=== PATIENT | female | born 1995 | race Caucasian/White ===

== ENCOUNTER 2020-09-29 11:18 | Inpatient (IN) | payer MEDICAID ==
[~2020-09-29] VITALS: Ht 172.7 cm; Wt 109.1 kg
[2020-09-29] MEDS ORDERED: ONDANSETRON HCL 4 MG/2 ML VIAL IV ONE (11:30)
[2020-09-29] MEDS ORDERED: SODIUM CHLORIDE 0.9% 1,000 ML IVB ONE (11:30)
[2020-09-29] MEDS ORDERED: KETOROLAC TROMETH 30 MG/ML 1ML VIAL IV ONE (11:30)
[2020-09-29 12:17] LABS: Basophils # (auto) 0 10 ^3/uL (0-0.2); Basophils % (auto) 0.2 % (0.0-2.0); Eosinophils # (auto) 0.1 10 ^3/uL (0-0.8); Eosinophils % (auto) 0.8 % (0.0-7.0); Hematocrit 39.1 % (36.0-46.0); Hemoglobin 13.2 g/dL (12.2-16.2); Lymphocytes # (auto) 1.1 10 ^3/uL (0.4-5.4); Lymphocytes % (auto) 11.4 % (10.0-50.0); Mean Corpuscular Hemoglobin 29.4 pg (28.0-32.0); Mean Corpuscular Hgb Conc. 33.7 g/dL (32.0-36.0); Mean Corpuscular Volume 87.1 fL (80.0-100.0); Monocytes # (auto) 0.5 10 ^3/uL (0-1.3); Monocytes % (auto) 5.5 % (0.0-12.0); Neutrophils # (auto) 7.7 10 ^3/uL (1.6-8.6); Neutrophils % (auto) 82.1 % (37.0-80.0); Platelet Count (auto) 283 10^3/uL (140-450); Red Blood Cells 4.49 10^6/uL (4.0-5.20); Red Cell Distribution Width 13.6 % (11.8-14.3); White Blood Cell 9.4 10^3/uL (4.4-10.8)
[2020-09-29 12:57] LABS: Albumin 4.2 g/dL (3.4-5.0); Potassium 3.4 mmol/L (3.5-5.1)
[2020-09-29 13:00] LABS: BUN/Creatinine Ratio 12.5; Bilirubin, Total 0.3 mg/dL (0.2-1.0); Total Protein 8.4 g/dL (6.4-8.2)
[2020-09-29] MEDS ORDERED: POTASSIUM EFFERVESENT TAB 25 MEQ PO ONE (17:45)
[2020-09-29] MEDS: SOD CHL 0.9%/ KCL 20MEQ 1,000 ML IV SCH (18:15)
[2020-09-29] MEDS ORDERED: NITROGLYCERIN 0.4 MG SL TAB SL PRN (18:15)
[2020-09-29] MEDS ORDERED: MORPHINE SULF INJ 2 MG/ML SYRINGE 1ML IV PRN ×2 (18:15)
[2020-09-29] MEDS ORDERED: ACETAMINOPHEN 325 MG TAB PO PRN (18:15)
[2020-09-29 21:03] LABS: Urine Bacteria FEW /hpf (None Seen); Urine Blood Negative /uL (Negative); Urine Mucus FEW (None Seen); Urine WBC 1 /hpf (0 - 5)
[2020-09-30] MEDS: SOD CHL 0.9%/ KCL 20MEQ 1,000 ML IV SCH ×3 (02:15→16:51)
[2020-09-30] MEDS: HYDROcodone-ACET 10/325MG TAB PO PRN (06:18)
[2020-09-30 07:15] LABS: Basophils # (auto) 0 10 ^3/uL (0-0.2); Basophils % (auto) 0.1 % (0.0-2.0); Eosinophils # (auto) 0 10 ^3/uL (0-0.8); Hematocrit 34.6 % (36.0-46.0); Hemoglobin 12.1 g/dL (12.2-16.2); Lymphocytes # (auto) 1.3 10 ^3/uL (0.4-5.4); Lymphocytes % (auto) 12.4 % (10.0-50.0); Mean Corpuscular Hemoglobin 30.1 pg (28.0-32.0); Mean Corpuscular Volume 86.1 fL (80.0-100.0); Monocytes # (auto) 1.2 10 ^3/uL (0-1.3); Monocytes % (auto) 12.1 % (0.0-12.0); Neutrophils # (auto) 7.7 10 ^3/uL (1.6-8.6); Neutrophils % (auto) 75.4 % (37.0-80.0); Platelet Count (auto) 238 10^3/uL (140-450); Red Blood Cells 4.02 10^6/uL (4.0-5.20); Red Cell Distribution Width 13.8 % (11.8-14.3); White Blood Cell 10.3 10^3/uL (4.4-10.8)
[2020-09-30 07:29] LABS: Albumin 3.7 g/dL (3.4-5.0); Calcium 8.3 mg/dL (8.5-10.1); Magnesium 2.2 mg/dL (1.6-2.6); Potassium 3.3 mmol/L (3.5-5.1)
[2020-09-30] MEDS ORDERED: MANNITOL FTV 25% 12.5 GM/50 ML 50 ML IV ONE (07:30)
[2020-09-30] MEDS ORDERED: SODIUM CHLORIDE 0.9% 1,000 ML IV ONE (07:30)
[2020-09-30 07:34] LABS: BUN/Creatinine Ratio 11.9; Bilirubin, Total 0.4 mg/dL (0.2-1.0); Total Protein 7.3 g/dL (6.4-8.2)
[2020-09-30] MEDS: PANTOPRAZOLE 40 MG/10 ML VIAL INJ IV SCH (10:00)
[2020-09-30] MEDS: cefTRIAXone 1GM/50ML D5W 50 ML IV SCH (10:41)
[2020-09-30] MEDS: ENOXAPARIN SOD 40 MG/0.4 ML SYRINGE SC SCH (10:41)
[2020-09-30] MEDS ORDERED: POTASSIUM CHL 20 Meq TABLET PO ONE (11:00)
[2020-09-30] MEDS ORDERED: KETOROLAC TROMETH 30 MG/ML 1ML VIAL IV PRN (12:15)
[2020-09-30] MEDS ORDERED: TAMSULOSIN HYDROCHLORIDE 0.4 MG CAP PO ONE (12:15)
[2020-09-30] MEDS: HYDROmorphone HCL 2 MG/ML VL IV PRN ×2 (13:57→22:00)
[2020-09-30] MEDS: ONDANSETRON HCL 4 MG/2 ML VIAL IV PRN ×2 (16:50→22:08)
[2020-09-30] MEDS: TAMSULOSIN HYDROCHLORIDE 0.4 MG CAP PO SCH (18:08)
[2020-10-01] MEDS: HYDROcodone-ACET 10/325MG TAB PO PRN ×2 (01:10→21:30)
[2020-10-01 02:24] VITALS: BP 149/85
[2020-10-01] MEDS: SOD CHL 0.9%/ KCL 20MEQ 1,000 ML IV SCH ×3 (03:00→17:42)
[2020-10-01 08:00] VITALS: BP_SYST 141; BP_DIAS 83; BP_DIAS 84
[2020-10-01] MEDS: HYDROmorphone HCL 2 MG/ML VL IV PRN ×5 (08:17→23:30)
[2020-10-01] MEDS: ONDANSETRON HCL 4 MG/2 ML VIAL IV PRN (08:18)
[2020-10-01] MEDS: PANTOPRAZOLE 40 MG/10 ML VIAL INJ IV SCH ×2 (10:00→10:25)
[2020-10-01] MEDS: cefTRIAXone 1GM/50ML D5W 50 ML IV SCH (10:24)
[2020-10-01] MEDS: ENOXAPARIN SOD 40 MG/0.4 ML SYRINGE SC SCH (10:25)
[2020-10-01 11:02] LABS: Basophils # (auto) 0 10 ^3/uL (0-0.2); Basophils % (auto) 0.1 % (0.0-2.0); Eosinophils # (auto) 0 10 ^3/uL (0-0.8); Eosinophils % (auto) 0.2 % (0.0-7.0); Hematocrit 35.6 % (36.0-46.0); Hemoglobin 12.4 g/dL (12.2-16.2); Lymphocytes # (auto) 0.8 10 ^3/uL (0.4-5.4); Lymphocytes % (auto) 10.5 % (10.0-50.0); Mean Corpuscular Hemoglobin 30.1 pg (28.0-32.0); Mean Corpuscular Hgb Conc. 34.7 g/dL (32.0-36.0); Mean Corpuscular Volume 86.7 fL (80.0-100.0); Monocytes # (auto) 0.9 10 ^3/uL (0-1.3); Neutrophils # (auto) 6.3 10 ^3/uL (1.6-8.6); Neutrophils % (auto) 78.2 % (37.0-80.0); Platelet Count (auto) 210 10^3/uL (140-450); Red Blood Cells 4.11 10^6/uL (4.0-5.20); Red Cell Distribution Width 13.4 % (11.8-14.3)
[2020-10-01] MEDS: PROMETHAZINE HCL 25 MG/ML 1ML IV PRN ×2 (11:05→16:36)
[2020-10-01 11:09] LABS: Potassium 3.7 mmol/L (3.5-5.1)
[2020-10-01 11:13] LABS: Calcium 7.8 mg/dL (8.5-10.1)
[2020-10-01 16:00] VITALS: BP 130/92
[2020-10-01] MEDS: TAMSULOSIN HYDROCHLORIDE 0.4 MG CAP PO SCH (17:42)
[2020-10-02] VITALS: BP 145/82
[2020-10-02] MEDS: SOD CHL 0.9%/ KCL 20MEQ 1,000 ML IV SCH ×3 (02:15→18:15)
[2020-10-02] MEDS: HYDROmorphone HCL 2 MG/ML VL IV PRN ×6 (04:30→23:18)
[2020-10-02 08:00] VITALS: BP 132/68
[2020-10-02] MEDS: PROMETHAZINE HCL 25 MG/ML 1ML IV PRN ×2 (08:36→15:13)
[2020-10-02] MEDS: cefTRIAXone 1GM/50ML D5W 50 ML IV SCH (10:00)
[2020-10-02] MEDS: PANTOPRAZOLE 40 MG/10 ML VIAL INJ IV SCH (10:00)
[2020-10-02] MEDS: ENOXAPARIN SOD 40 MG/0.4 ML SYRINGE SC SCH (10:00)
[2020-10-02 12:05] LABS: INR 1.02 (0.9-1.15)
[2020-10-02 12:09] LABS: BUN/Creatinine Ratio 7.3; Calcium 7.9 mg/dL (8.5-10.1); Potassium 3.5 mmol/L (3.5-5.1)
[2020-10-02 16:00] VITALS: BP 121/71
[2020-10-02] MEDS: TAMSULOSIN HYDROCHLORIDE 0.4 MG CAP PO SCH (18:00)
[2020-10-03 00:03] VITALS: BP 151/95
[2020-10-03] MEDS: HYDROcodone-ACET 10/325MG TAB PO PRN (00:35)
[2020-10-03] MEDS: HYDROmorphone HCL 2 MG/ML VL IV PRN ×6 (02:22→22:50)
[2020-10-03] MEDS: SOD CHL 0.9%/ KCL 20MEQ 1,000 ML IV SCH ×3 (02:22→19:03)
[2020-10-03 07:51] LABS: Basophils # (auto) 0 10 ^3/uL (0-0.2); Basophils % (auto) 0.3 % (0.0-2.0); Eosinophils # (auto) 0.1 10 ^3/uL (0-0.8); Eosinophils % (auto) 1.7 % (0.0-7.0); Hematocrit 38.8 % (36.0-46.0); Hemoglobin 13.1 g/dL (12.2-16.2); Lymphocytes # (auto) 1.9 10 ^3/uL (0.4-5.4); Lymphocytes % (auto) 35.6 % (10.0-50.0); Mean Corpuscular Hemoglobin 29.1 pg (28.0-32.0); Mean Corpuscular Hgb Conc. 33.7 g/dL (32.0-36.0); Mean Corpuscular Volume 86.1 fL (80.0-100.0); Monocytes # (auto) 0.5 10 ^3/uL (0-1.3); Monocytes % (auto) 9.1 % (0.0-12.0); Neutrophils # (auto) 2.9 10 ^3/uL (1.6-8.6); Neutrophils % (auto) 53.3 % (37.0-80.0); Nucleated Red Blood Cells % 0.1 %; Platelet Count (auto) 221 10^3/uL (140-450); Red Blood Cells 4.51 10^6/uL (4.0-5.20); Red Cell Distribution Width 13.2 % (11.8-14.3); White Blood Cell 5.4 10^3/uL (4.4-10.8)
[2020-10-03 08:00] VITALS: BP 133/75
[2020-10-03 08:10] LABS: BUN/Creatinine Ratio 8.4; Calcium 8.1 mg/dL (8.5-10.1); Magnesium 2.4 mg/dL (1.6-2.6); Potassium 3.9 mmol/L (3.5-5.1)
[2020-10-03] MEDS: ENOXAPARIN SOD 40 MG/0.4 ML SYRINGE SC SCH (08:34)
[2020-10-03] MEDS: cefTRIAXone 1GM/50ML D5W 50 ML IV SCH (08:34)
[2020-10-03] MEDS: PANTOPRAZOLE 40 MG/10 ML VIAL INJ IV SCH (10:00)
[2020-10-03] MEDS ORDERED: PROPOFOL 10 MG/ML 20 ML IV ONE (12:34)
[2020-10-03] MEDS ORDERED: IOHEXOL 300 MG/ML 100ML BOTTLE IJ ONE (13:06)
[2020-10-03] MEDS ORDERED: MANNITOL FTV 25% 12.5 GM/50 ML 50 ML IV ONE (14:15)
[2020-10-03 16:00] VITALS: BP 135/78
[2020-10-03] MEDS: TAMSULOSIN HYDROCHLORIDE 0.4 MG CAP PO SCH (18:00)
[2020-10-04] VITALS: BP 131/92
[2020-10-04] MEDS: HYDROmorphone HCL 2 MG/ML VL IV PRN ×6 (02:02→21:13)
[2020-10-04] MEDS: SOD CHL 0.9%/ KCL 20MEQ 1,000 ML IV SCH ×4 (02:03→21:14)
[2020-10-04] MEDS: PROMETHAZINE HCL 25 MG/ML 1ML IV PRN (06:50)
[2020-10-04 07:11] LABS: Basophils # (auto) 0 10 ^3/uL (0-0.2); Basophils % (auto) 0.1 % (0.0-2.0); Eosinophils # (auto) 0 10 ^3/uL (0-0.8); Eosinophils % (auto) 0.7 % (0.0-7.0); Hematocrit 40.1 % (36.0-46.0); Hemoglobin 13.7 g/dL (12.2-16.2); Lymphocytes # (auto) 0.9 10 ^3/uL (0.4-5.4); Lymphocytes % (auto) 18.8 % (10.0-50.0); Mean Corpuscular Hemoglobin 29.3 pg (28.0-32.0); Mean Corpuscular Hgb Conc. 34.2 g/dL (32.0-36.0); Mean Corpuscular Volume 85.6 fL (80.0-100.0); Monocytes # (auto) 0.5 10 ^3/uL (0-1.3); Monocytes % (auto) 9.6 % (0.0-12.0); Neutrophils # (auto) 3.5 10 ^3/uL (1.6-8.6); Neutrophils % (auto) 70.8 % (37.0-80.0); Nucleated Red Blood Cells % 0.1 %; Platelet Count (auto) 224 10^3/uL (140-450); Red Blood Cells 4.68 10^6/uL (4.0-5.20); Red Cell Distribution Width 13.3 % (11.8-14.3); White Blood Cell 4.9 10^3/uL (4.4-10.8)
[2020-10-04 07:32] LABS: Potassium 4.1 mmol/L (3.5-5.1)
[2020-10-04 07:37] LABS: BUN/Creatinine Ratio 11.4; Calcium 8.6 mg/dL (8.5-10.1); Magnesium 2.2 mg/dL (1.6-2.6)
[2020-10-04 08:00] VITALS: BP 151/77
[2020-10-04] MEDS: ENOXAPARIN SOD 40 MG/0.4 ML SYRINGE SC SCH (08:59)
[2020-10-04] MEDS: PANTOPRAZOLE 40 MG TAB PO SCH (09:06)
[2020-10-04] MEDS: cefTRIAXone 1GM/50ML D5W 50 ML IV SCH (09:06)
[2020-10-04 16:00] VITALS: BP 90/56
[2020-10-04] MEDS: TAMSULOSIN HYDROCHLORIDE 0.4 MG CAP PO SCH (17:38)
[2020-10-04] MEDS: HYDROcodone-ACET 10/325MG TAB PO PRN (23:03)
[2020-10-05] VITALS: BP 146/91
[2020-10-05] MEDS: HYDROmorphone HCL 2 MG/ML VL IV PRN ×6 (00:23→22:19)
[2020-10-05] MEDS: SOD CHL 0.9%/ KCL 20MEQ 1,000 ML IV SCH ×3 (05:46→22:37)
[2020-10-05] MEDS: ENOXAPARIN SOD 40 MG/0.4 ML SYRINGE SC SCH (07:55)
[2020-10-05 08:00] VITALS: BP 132/77
[2020-10-05] MEDS: cefTRIAXone 1GM/50ML D5W 50 ML IV SCH (10:15)
[2020-10-05] MEDS: PANTOPRAZOLE 40 MG TAB PO SCH (10:15)
[2020-10-05] MEDS ORDERED: KETOROLAC TROMETH 30 MG/ML 1ML VIAL IV ONE ×2 (11:15→13:00)
[2020-10-05] MEDS ORDERED: SENNA 8.6 MG TAB PO PRN (11:30)
[2020-10-05] MEDS ORDERED: DOCUSATE SOD 100 MG CAP PO PRN (11:30)
[2020-10-05] MEDS ORDERED: LACTULOSE 20Gm/30ML SOLN PO PRN (11:30)
[2020-10-05 15:45] VITALS: BP 159/97
[2020-10-05] MEDS: TAMSULOSIN HYDROCHLORIDE 0.4 MG CAP PO SCH (17:46)
[2020-10-06] VITALS: BP 143/89
[2020-10-06] MEDS: HYDROmorphone HCL 2 MG/ML VL IV PRN ×6 (02:14→23:07)
[2020-10-06] MEDS: SOD CHL 0.9%/ KCL 20MEQ 1,000 ML IV SCH ×3 (02:15→21:12)
[2020-10-06 08:00] VITALS: BP 149/90
[2020-10-06 08:05] LABS: Basophils # (auto) 0 10 ^3/uL (0-0.2); Basophils % (auto) 0.5 % (0.0-2.0); Eosinophils # (auto) 0 10 ^3/uL (0-0.8); Hematocrit 36.1 % (36.0-46.0); Hemoglobin 12.5 g/dL (12.2-16.2); Lymphocytes # (auto) 1.6 10 ^3/uL (0.4-5.4); Lymphocytes % (auto) 39.8 % (10.0-50.0); Mean Corpuscular Hemoglobin 29.4 pg (28.0-32.0); Mean Corpuscular Hgb Conc. 34.6 g/dL (32.0-36.0); Mean Corpuscular Volume 85.1 fL (80.0-100.0); Monocytes # (auto) 0.4 10 ^3/uL (0-1.3); Monocytes % (auto) 9.2 % (0.0-12.0); Neutrophils % (auto) 49.5 % (37.0-80.0); Nucleated Red Blood Cells % 0.1 %; Platelet Count (auto) 194 10^3/uL (140-450); Red Blood Cells 4.25 10^6/uL (4.0-5.20); Red Cell Distribution Width 13.4 % (11.8-14.3); White Blood Cell 4.1 10^3/uL (4.4-10.8)
[2020-10-06 08:25] LABS: Calcium 7.9 mg/dL (8.5-10.1); Magnesium 1.8 mg/dL (1.6-2.6); Potassium 3.6 mmol/L (3.5-5.1)
[2020-10-06 08:26] LABS: BUN/Creatinine Ratio 6.7
[2020-10-06] MEDS: ENOXAPARIN SOD 40 MG/0.4 ML SYRINGE SC SCH (09:13)
[2020-10-06] MEDS: PANTOPRAZOLE 40 MG TAB PO SCH (09:14)
[2020-10-06] MEDS: cefTRIAXone 1GM/50ML D5W 50 ML IV SCH (10:06)
[2020-10-06] MEDS ORDERED: IOHEXOL 300 MG/ML 100ML BOTTLE IJ ONE (13:24)
[2020-10-06] MEDS ORDERED: ONDANSETRON HCL 4 MG/2 ML VIAL ONE (13:26)
[2020-10-06] MEDS ORDERED: KETOROLAC TROMETH 30 MG/ML 1ML VIAL ONE (13:26)
[2020-10-06] MEDS ORDERED: PROPOFOL 10 MG/ML 20 ML IV ONE (13:26)
[2020-10-06] MEDS ORDERED: fentaNYL CITRATE 100 MCG/2 ML VL ONE (13:26)
[2020-10-06] MEDS ORDERED: MIDAZOLAM HCL 1MG/1ML-2 ML VIAL ONE (13:26)
[2020-10-06] MEDS ORDERED: GLYCOPYRROLATE 0.2 MG/ML 1ML VIAL ONE (13:26)
[2020-10-06] MEDS ORDERED: HYDROmorphone HCL 2 MG/ML VL IV PRN (14:45)
[2020-10-06] MEDS ORDERED: ONDANSETRON HCL 4 MG/2 ML VIAL IV PRN (14:45)
[2020-10-06] MEDS ORDERED: KETAMINE HCL 10 ML ONE (15:26)
[2020-10-06] MEDS: HYDROmorphone HCL 2 MG/ML VL ONE ×2 (15:49→15:59)
[2020-10-06 16:00] VITALS: BP 151/95
[2020-10-06] MEDS: TAMSULOSIN HYDROCHLORIDE 0.4 MG CAP PO SCH (17:51)
[2020-10-07] VITALS: BP 134/78
[2020-10-07] MEDS: HYDROmorphone HCL 2 MG/ML VL IV PRN ×5 (02:05→14:15)
[2020-10-07] MEDS: SOD CHL 0.9%/ KCL 20MEQ 1,000 ML IV SCH ×4 (05:11→21:39)
[2020-10-07 06:02] LABS: Basophils # (auto) 0 10 ^3/uL (0-0.2); Basophils % (auto) 0.4 % (0.0-2.0); Eosinophils # (auto) 0 10 ^3/uL (0-0.8); Eosinophils % (auto) 0.2 % (0.0-7.0); Hematocrit 34.5 % (36.0-46.0); Lymphocytes # (auto) 2.1 10 ^3/uL (0.4-5.4); Lymphocytes % (auto) 47.3 % (10.0-50.0); Mean Corpuscular Hemoglobin 29.4 pg (28.0-32.0); Mean Corpuscular Hgb Conc. 34.7 g/dL (32.0-36.0); Mean Corpuscular Volume 84.8 fL (80.0-100.0); Monocytes # (auto) 0.4 10 ^3/uL (0-1.3); Monocytes % (auto) 9.7 % (0.0-12.0); Neutrophils # (auto) 1.9 10 ^3/uL (1.6-8.6); Neutrophils % (auto) 42.4 % (37.0-80.0); Nucleated Red Blood Cells % 0.1 %; Platelet Count (auto) 189 10^3/uL (140-450); Red Blood Cells 4.06 10^6/uL (4.0-5.20); Red Cell Distribution Width 13.1 % (11.8-14.3); White Blood Cell 4.4 10^3/uL (4.4-10.8)
[2020-10-07 06:39] LABS: BUN/Creatinine Ratio 6.8; Calcium 7.9 mg/dL (8.5-10.1); Magnesium 1.8 mg/dL (1.6-2.6); Potassium 3.8 mmol/L (3.5-5.1)
[2020-10-07 08:00] VITALS: BP 146/92
[2020-10-07] MEDS: ENOXAPARIN SOD 40 MG/0.4 ML SYRINGE SC SCH (09:43)
[2020-10-07] MEDS: cefTRIAXone 1GM/50ML D5W 50 ML IV SCH (09:43)
[2020-10-07] MEDS: PANTOPRAZOLE 40 MG TAB PO SCH (09:43)
[2020-10-07 16:00] VITALS: BP 147/80
[2020-10-07] MEDS: TAMSULOSIN HYDROCHLORIDE 0.4 MG CAP PO SCH (17:55)
[2020-10-07] MEDS: HYDROmorphone HCL 2 MG TAB PO PRN ×2 (17:55→21:38)
[2020-10-07] MEDS: HYDROcodone-ACET 10/325MG TAB PO PRN (23:41)
[2020-10-08 00:13] VITALS: BP 136/72
[2020-10-08] MEDS: HYDROmorphone HCL 2 MG TAB PO PRN ×2 (04:20→22:13)
[2020-10-08] MEDS: HYDROcodone-ACET 10/325MG TAB PO PRN (07:37)
[2020-10-08 08:00] VITALS: BP 131/74
[2020-10-08] MEDS: levoFLOXacin 500 MG TAB PO SCH (10:13)
[2020-10-08] MEDS: ENOXAPARIN SOD 40 MG/0.4 ML SYRINGE SC SCH (10:14)
[2020-10-08] MEDS: PANTOPRAZOLE 40 MG TAB PO SCH (10:14)
[2020-10-08] MEDS: SOD CHL 0.9%/ KCL 20MEQ 1,000 ML IV SCH ×3 (10:20→22:19)
[2020-10-08] MEDS ORDERED: MANNITOL 20% SOLN 100 gm/500ml 300 ML IV ONE (11:45)
[2020-10-08 16:00] VITALS: BP 133/82
[2020-10-08 16:26] LABS: INR 1.06 (0.9-1.15); Partial Thromboplastin Time 27.6 sec (23.0-31.2)
[2020-10-08] MEDS: TAMSULOSIN HYDROCHLORIDE 0.4 MG CAP PO SCH (17:59)
[2020-10-08] MEDS ORDERED: IOHEXOL 300 MG/ML 100ML BOTTLE IJ ONE (18:54)
[2020-10-08] MEDS ORDERED: SUCCINYLCHOLINE CHLORIDE 20 MG/ML 10ML VIAL IV ONE (19:25)
[2020-10-08] MEDS ORDERED: LIDOCAINE 1% INJ PF 5ML AMP ONE (19:27)
[2020-10-08] MEDS ORDERED: ONDANSETRON HCL 4 MG/2 ML VIAL ONE (19:27)
[2020-10-08] MEDS ORDERED: DexAMETHasone SOD PHOS 10MG/1ML VIAL INJ ONE (19:27)
[2020-10-08] MEDS ORDERED: PROPOFOL 10 MG/ML 20 ML IV ONE (19:28)
[2020-10-08] MEDS ORDERED: ROCURONIUM 10MG/ML 10ML VIAL IV ONE (19:28)
[2020-10-08] MEDS ORDERED: fentaNYL CITRATE 100 MCG/2 ML VL ONE (19:34)
[2020-10-08] MEDS ORDERED: ceFAZolin 1GM/50ML 50 ML IV ONE (20:04)
[2020-10-08] MEDS ORDERED: GLYCOPYRROLATE 0.2 MG/ML 1ML VIAL ONE (21:14)
[2020-10-08] MEDS ORDERED: NEOSTIGMINE 1 MG/ML INJ (10mg/10ML VIAL) ONE (21:14)
[2020-10-08] MEDS ORDERED: NALOXONE HCL 0.4 MG/ML VIAL IV PRN (21:30)
[2020-10-08] MEDS ORDERED: HYDROmorphone HCL 2 MG/ML VL IV PRN ×2 (21:30)
[2020-10-08] MEDS ORDERED: ONDANSETRON HCL 4 MG/2 ML VIAL IV PRN (21:30)
[2020-10-08] MEDS ORDERED: hydrALAZINE HCL 20 MG/ML VL IV PRN (21:30)
[2020-10-08] MEDS ORDERED: LABETALOL HCL 5 MG/ML 4ML SYRINGE IV PRN (21:30)
[2020-10-08] MEDS ORDERED: HYDROmorphone HCL 2 MG/ML VL IV ONE (23:45)
[2020-10-09] VITALS: BP 147/80
[2020-10-09 06:21] LABS: Basophils # (auto) 0 10 ^3/uL (0-0.2); Basophils % (auto) 0.2 % (0.0-2.0); Eosinophils # (auto) 0 10 ^3/uL (0-0.8); Hematocrit 38.8 % (36.0-46.0); Hemoglobin 13.8 g/dL (12.2-16.2); Lymphocytes # (auto) 0.6 10 ^3/uL (0.4-5.4); Lymphocytes % (auto) 15.9 % (10.0-50.0); Mean Corpuscular Hemoglobin 29.9 pg (28.0-32.0); Mean Corpuscular Hgb Conc. 35.6 g/dL (32.0-36.0); Mean Corpuscular Volume 84.1 fL (80.0-100.0); Monocytes # (auto) 0.1 10 ^3/uL (0-1.3); Monocytes % (auto) 2.7 % (0.0-12.0); Neutrophils # (auto) 3.3 10 ^3/uL (1.6-8.6); Neutrophils % (auto) 81.2 % (37.0-80.0); Nucleated Red Blood Cells % 0.2 %; Platelet Count (auto) 261 10^3/uL (140-450); Red Blood Cells 4.61 10^6/uL (4.0-5.20); Red Cell Distribution Width 13.5 % (11.8-14.3); White Blood Cell 4.1 10^3/uL (4.4-10.8)
[2020-10-09 06:28] LABS: INR 1.04 (0.9-1.15)
[2020-10-09 06:31] LABS: BUN/Creatinine Ratio 9.1; Calcium 8.5 mg/dL (8.5-10.1); Potassium 3.9 mmol/L (3.5-5.1)
[2020-10-09 08:00] VITALS: BP 149/83
[2020-10-09] MEDS: levoFLOXacin 500 MG TAB PO SCH (10:21)
[2020-10-09] MEDS: ENOXAPARIN SOD 40 MG/0.4 ML SYRINGE SC SCH (10:22)
[2020-10-09] MEDS: PANTOPRAZOLE 40 MG TAB PO SCH (10:22)
[2020-10-09] MEDS: SOD CHL 0.9%/ KCL 20MEQ 1,000 ML IV SCH (10:22)
[2020-10-09] MEDS: HYDROcodone-ACET 10/325MG TAB PO PRN (10:22)
[2020-10-09] MEDS ORDERED: LEVO-28 PO (11:20)
[2020-10-09] MEDS ORDERED: IBUP800T26 PO (11:20)
== END 2020-10-09 15:23 | disposition home or self-care (01) | DRG 465 ==
LOC: ER 11:18 → TELE 11:19 → TELE-WESTW 09-30 23:44
PROVIDERS: ADMIT Internal Medicine; ATTEND Internal Medicine
PROC: 05HB33Z Insertion of Infusion Device into Right Basilic Vein, Percutaneous Approach (ICD-10-PCS; 2020-10-04)
PROC: B54MZZA Ultrasonography of Right Upper Extremity Veins, Guidance (ICD-10-PCS; 2020-10-04)
PROC: BT1F1ZZ Fluoroscopy of Left Kidney, Ureter and Bladder using Low Osmolar Contrast (ICD-10-PCS; 2020-10-06)
PROC: 0T778DZ Dilation of Left Ureter with Intraluminal Device, Via Natural or Artificial Opening Endoscopic (ICD-10-PCS; principal; 2020-10-06 14:40)
PROC: 0TP98DZ Removal of Intraluminal Device from Ureter, Via Natural or Artificial Opening Endoscopic (ICD-10-PCS; 2020-10-08)
PROC: BT1F1ZZ Fluoroscopy of Left Kidney, Ureter and Bladder using Low Osmolar Contrast (ICD-10-PCS; 2020-10-08)
DX: N13.2 Hydronephrosis with renal and ureteral calculous obstruction (principal); U07.1 COVID-19; J12.82 Pneumonia due to coronavirus disease 2019; N17.0 Acute kidney failure with tubular necrosis; G35 Multiple sclerosis; E87.6 Hypokalemia; E86.0 Dehydration; E66.01 Morbid (severe) obesity due to excess calories; Z87.442 Personal history of urinary calculi; Z53.9 Procedure and treatment not carried out, unspecified reason; K59.00 Constipation, unspecified; Z68.37 Body mass index [BMI] 37.0-37.9, adult
CPT/HCPCS: 36415; 71045; 74018; 74176; 74430; 76001; 80048; 80053; 81001; 81025; 83690; 83735; 84702; 85025; 85610; 85730; 96361; 96365; 96375; G0378; J0330; J0690; J0696; J1100; J1885; J2250; J2405; J2704